=== PATIENT | female | born 2005 ===

== ENCOUNTER 2024-07-28 06:53 | Outpatient (REF) | payer OTHER, SELFPAY ==
--- NOTE | ~2024-07-28 | US_ITS ---
CLINICAL HISTORY: pelvic pain irregular bleeding, pt has IUD, US pelvis transabdominal and transvaginal with color Doppler Comparison: None Findings: Transabdominal scanning performed for overall anatomy. Transvaginal scanning performed for additional detail. LMP: IUD since February 2025 Anteverted uterus, normal size and echotexture, measuring 6.7 x 3.1 x 3.9 cm. Well defined endometrium, measuring 4.9 mm in thickness. IUD positioned within the endometrial cavity. The right ovary measures, 2.9 x 2.5 x 3.4 cm. Normal sonographic appearance right ovary. The left ovary measures, 3.2 x 2.5 x 3.0 cm. Normal sonographic appearance left ovary. No adnexal masses or fluid collections. No free fluid Impression: 1. Uterus contains a IUD within the endometrial cavity. 2. Normal ovaries/adnexa. This document has been electronically signed by: Keo Macario MD on 07/29/2024 07:49:49
== END 2024-07-28 06:54 | disposition home or self-care (01) ==
LOC: HO.UMASIMG 06:53
PROVIDERS: Visit Provider Nurse Practitioner Women's Health
DX: Z30.431 Encounter for routine checking of intrauterine contraceptive device (principal); N94.11 Superficial (introital) dyspareunia
CPT/HCPCS: 76830; 76856

== ENCOUNTER → 2024-07-28 10:30 | Outpatient (BNV) | payer OTHER, SELFPAY | PROVIDERS: Visit Provider Radiology Diagnostic Radiology | DX: N92.6 Irregular menstruation, unspecified (principal); R10.2 Pelvic and perineal pain | CPT/HCPCS: 76830; 76856 ==